=== PATIENT | male | born 1985 | race Two or more races ===

== ENCOUNTER 2019-08-26 16:15 | Emergency (ER) | payer MEDICAID ==
[~2019-08-26] VITALS: Ht 167.6 cm; Wt 63.5 kg
[2019-08-26 16:25] VITALS: BP 135/78
[2019-08-26 16:42] LABS: Basophils # (auto) 0 uL; Basophils % (auto) 0.5 % (0.0-2.0); Eosinophils # (auto) 0 uL; Eosinophils % (auto) 0.5 % (0.0-7.0); Hematocrit 46.6 % (41.0-53.0); Lymphocytes # (auto) 0.5 uL; Lymphocytes % (auto) 6.3 % (10.0-50.0); Mean Corpuscular Hemoglobin 30.1 pg (28.0-32.0); Mean Corpuscular Hgb Conc. 34.3 g/dL (32.0-36.0); Mean Corpuscular Volume 87.8 fL (80.0-100.0); Monocytes # (auto) 0.5 uL; Monocytes % (auto) 6.2 % (0.0-12.0); Neutrophils # (auto) 6.3 uL; Neutrophils % (auto) 86.5 % (37.0-80.0); Nucleated Red Blood Cells % 0.1 %; Platelet Count (auto) 220 10^3/uL (140-450); Red Blood Cells 5.31 10^6/uL (4.5-5.90); Red Cell Distribution Width 13.1 % (11.8-14.3); White Blood Cell 7.3 10^3/uL (4.4-10.8)
[2019-08-26 17:06] LABS: BUN/Creatinine Ratio 10.9; Potassium 3.9 mmol/L (3.5-5.1)
[2019-08-26 17:07] LABS: Albumin 4.1 g/dL (3.4-5.0); Bilirubin, Total 1.4 mg/dL (0.2-1.0); Calcium 8.7 mg/dL (8.5-10.1); Total Protein 7.9 g/dL (6.4-8.2)
== END 2019-08-27 04:51 | disposition left against medical advice (07) ==
LOC: ER 16:15
DX: R53.1 Weakness (principal)
CPT/HCPCS: 36415; 80053; 85025

== ENCOUNTER 2019-10-07 22:04 | Emergency (ER) | payer MEDICAID, OTHER ==
[~2019-10-07] VITALS: Ht 167.6 cm; Wt 63.5 kg
[2019-10-07 22:43] VITALS: BP 120/80
== END 2019-10-07 23:52 | disposition left against medical advice (07) ==
LOC: ER 22:07
DX: M54.2 Cervicalgia (principal); M25.519 Pain in unspecified shoulder; M54.6 Pain in thoracic spine; Z53.21 Procedure and treatment not carried out due to patient leaving prior to being seen by health care provider; V29.9XXA Motorcycle rider (driver) (passenger) injured in unspecified traffic accident, initial encounter; Y93.89 Activity, other specified; Y92.89 Other specified places as the place of occurrence of the external cause; Y99.8 Other external cause status
CPT/HCPCS: 70450; 72125; 72128

== ENCOUNTER 2021-02-09 10:28 | Emergency (ER) | payer MEDICAID, OTHER ==
[~2021-02-09] VITALS: Ht 167.6 cm; Wt 69.4 kg
[2021-02-09 11:03] LABS: Urine Bacteria NONE SEEN /hpf (None Seen); Urine Blood Negative /uL (Negative); Urine Mucus FEW (None Seen); Urine Specific Gravity 1.026 (1.001-1.035); Urine WBC 14 /hpf (0 - 3)
[2021-02-09 11:16] VITALS: BP 116/85
== END 2021-02-09 11:50 | disposition home or self-care (01) ==
LOC: ER 10:28
DX: S76.911A Strain of unspecified muscles, fascia and tendons at thigh level, right thigh, initial encounter (principal); L72.0 Epidermal cyst; X58.XXXA Exposure to other specified factors, initial encounter; Y93.89 Activity, other specified; Y92.89 Other specified places as the place of occurrence of the external cause; Y99.8 Other external cause status
CPT/HCPCS: 76870; 81001

== ENCOUNTER 2021-12-12 20:57 | Emergency (ER) | payer MEDICAID ==
[~2021-12-12] VITALS: Ht 170.2 cm; Wt 67.6 kg
[2021-12-12 21:00] VITALS: BP 144/87
[2021-12-12 21:36] LABS: Urine Bacteria NONE SEEN /hpf (None Seen); Urine Blood Negative /uL (Negative); Urine Mucus FEW (None Seen); Urine Specific Gravity 1.028 (1.001-1.035); Urine WBC 6 /hpf (0 - 3)
== END 2021-12-13 01:50 | disposition left against medical advice (07) ==
LOC: ER 20:59
DX: N50.819 Testicular pain, unspecified (principal); Z53.21 Procedure and treatment not carried out due to patient leaving prior to being seen by health care provider
CPT/HCPCS: 81001

== ENCOUNTER 2022-09-15 01:44 | Emergency (ER) | payer MEDICAID ==
[~2022-09-15] VITALS: Ht 167.6 cm; Wt 68.3 kg
[2022-09-15 02:28] VITALS: BP 142/99
== END 2022-09-16 05:28 | disposition left against medical advice (07) ==
LOC: ER 01:44
DX: R06.02 Shortness of breath (principal); Z53.21 Procedure and treatment not carried out due to patient leaving prior to being seen by health care provider
CPT/HCPCS: 71046

== ENCOUNTER 2022-09-15 15:22 | Emergency (ER) | payer MEDICAID ==
[~2022-09-15] VITALS: Ht 167.6 cm; Wt 65.5 kg
[2022-09-15 15:56] VITALS: BP 144/98
== END 2022-09-15 19:18 | disposition home or self-care (01) ==
LOC: ER 15:22
DX: B34.9 Viral infection, unspecified (principal); J02.9 Acute pharyngitis, unspecified; Z91.010 Allergy to peanuts

== ENCOUNTER 2023-04-27 00:41 | Emergency (ER) | payer MEDICAID ==
[~2023-04-27] VITALS: Ht 170.2 cm; Wt 68.0 kg
[2023-04-27 00:41] VITALS: BP 127/89
[2023-04-27 01:50] LABS: Urine Bacteria FEW /hpf (None Seen); Urine Blood 1+ /uL (Negative); Urine Mucus FEW (None Seen); Urine Specific Gravity 1.031 (1.001-1.035); Urine WBC 107 /hpf (0 - 3)
[2023-04-27 01:56] LABS: Basophils # (auto) 0 10 ^3/uL (0-0.2); Basophils % (auto) 0.4 % (0.0-2.0); Eosinophils # (auto) 0.2 10 ^3/uL (0-0.8); Eosinophils % (auto) 2.7 % (0.0-7.0); Hematocrit 43.7 % (41.0-53.0); Hemoglobin 14.7 g/dL (13.5-17.5); Lymphocytes # (auto) 1.1 10 ^3/uL (0.4-5.4); Lymphocytes % (auto) 14.7 % (10.0-50.0); Mean Corpuscular Hemoglobin 29.2 pg (28.0-32.0); Mean Corpuscular Hgb Conc. 33.7 g/dL (32.0-36.0); Mean Corpuscular Volume 86.8 fL (80.0-100.0); Monocytes # (auto) 0.6 10 ^3/uL (0-1.3); Monocytes % (auto) 7.5 % (0.0-12.0); Neutrophils # (auto) 5.6 10 ^3/uL (1.6-8.6); Neutrophils % (auto) 74.7 % (37.0-80.0); Nucleated Red Blood Cells % 0.1 %; Red Blood Cells 5.03 10^6/uL (4.5-5.90); Red Cell Distribution Width 12.8 % (11.8-14.3); White Blood Cell 7.5 10^3/uL (4.4-10.8)
[2023-04-27 02:12] LABS: Albumin 3.7 g/dL (3.4-5.0); Calcium 8.5 mg/dL (8.5-10.1); Potassium 3.5 mmol/L (3.5-5.1)
[2023-04-27 02:15] LABS: BUN/Creatinine Ratio 11.3 (10.0-20.0); Bilirubin, Total 0.9 mg/dL (0.2-1.0); Total Protein 7.5 g/dL (6.4-8.2)
== END 2023-04-27 05:59 | disposition left against medical advice (07) ==
LOC: ER 00:41
DX: R10.11 Right upper quadrant pain (principal); Z53.21 Procedure and treatment not carried out due to patient leaving prior to being seen by health care provider
CPT/HCPCS: 36415; 80053; 81001; 83690; 84484; 85025

== ENCOUNTER 2023-06-16 01:56 | Emergency (ER) | payer MEDICAID ==
[~2023-06-16] VITALS: Ht 167.6 cm; Wt 63.7 kg
[2023-06-16 02:16] VITALS: BP 136/97; PULSE 79; RESP 16; TEMP 97.9
[2023-06-16] MEDS ORDERED: FLUORESCEIN SOD OPTH TEST STRIP ONE (02:50)
[2023-06-16] MEDS ORDERED: HYDROcodone-ACET 5/325MG TAB PO ONE (03:45)
[2023-06-16] MEDS ORDERED: ERYTHROMY OPTH OINT 5mg/gm 1gm or 3.5gm tube OP ONE (03:45)
[2023-06-16] MEDS ORDERED: TETANUS-DIPTH-ACEL PERTUSSIS 0.5ML SYR Tdap IM ONE (03:45)
[2023-06-16] MEDS ORDERED: GENT0.3S10 EACHEYE (03:48)
[2023-06-16 03:57] VITALS: O2SAT 97
== END 2023-06-16 03:31 | disposition left against medical advice (07) ==
LOC: ER 01:58
DX: T15.01XA Foreign body in cornea, right eye, initial encounter (principal); Z91.010 Allergy to peanuts; W22.8XXA Striking against or struck by other objects, initial encounter; Y93.89 Activity, other specified; Y92.89 Other specified places as the place of occurrence of the external cause; Y99.8 Other external cause status

== ENCOUNTER 2025-09-28 15:35 | Emergency (ER) | payer MEDICAID ==
[~2025-09-28] VITALS: Ht 170.2 cm; Wt 68.7 kg
[~2025-09-28 15:35] MED LIST: GENT0.3S10 EACHEYE
[2025-09-28 15:37] VITALS: BP 147/99; PULSE 98; RESP 15; TEMP 98.2; O2SAT 97
--- NOTE | 2025-09-28 16:55 | DVH ---
CLINICAL INDICATION: INJURY TECHNIQUE: 3 radiographic views of the right shoulder were obtained. Comparison: None FINDINGS/IMPRESSION: There is no evidence of acute fracture or dislocation. The visualized joint space is well maintained. The alignment is anatomical. There is no radiopaque foreign body.
[2025-09-28] MEDS ORDERED: IBUP-1456 PO (17:08)
--- NOTE | 2025-09-28 17:09 | ED.PDOC ---
Musculoskeletal HPI Comments A 39 YEAR OLD MALE PRESENTS TO THE ED WITH COMPLAINT OF RIGHT SHOULDER PAIN. PATIENT STATES HE WAS LIFTING A BUCKET OF PAINT YESTERDAY NIGHT AND HE FELT PAIN IN HIS RIGHT SHOULDER SHORTLY AFTER. PATIENT REPORTS HE IS NOW EXPERIENCING RIGHT SHOULDER PAIN THAT IS WORSE WITH MOVEMENT. PATIENT DENIES FEVER, CHILLS, SHORTNESS OF BREATH, CHEST PAIN, ABDOMINAL PAIN, NAUSEA, VOMITING, HEADACHE, OR OTHER COMPLAINTS. NO OTHER SYMPTOMS OR MODIFYING FACTORS AT THIS TIME. PATIENT IS ALERT, ORIENTED X 4, AND HAS STEADY GAIT. Chief Complaint: Upper Extremity Time Seen by MD: 16:06 Primary Care Provider: JILL Reviewed Notes: Nurses Notes, Medications, Allergies Allergies: Coded Allergies: Peanut-containing Drug Products (Verified Allergy, Unknown, 02/24/21) Uncoded Allergies: NKA (Allergy, 12/11/09) Home Meds Active Scripts Ibuprofen (Ibuprofen) 800 Mg Tab, 1 TAB PO TID, #30 TAB Prov:TEODORA PEÑA 09/28/25 Gentamicin Sulfate (Gentamicin Sulfate) 0.3 % Maricruz, 2 DROP EACHEYE QID, #5 ML right eye Prov:MARIANA BARRAZA INSPECTOR CRYSTAL 06/16/23 Information Source: Patient Mode of Arrival: Ambulatory Location: Right Extremity Location: Shoulder Timing: Days Prehospital treatment: None Severity: Moderate Able to Move Extremity: Yes Bear Weight: Fully Pain: Moderate Mechanism: Twisting Circumstances: Accident Onset of Symptoms: After Exercise Symptoms: Pain DVT Risk Factors: NONE Last Tetanus: Unknown Associated signs and symptoms: Shoulder pain Past Medical History PAST MEDICAL HISTORY: Denies Surgical History: Denies all surgeries Family History Family History: No family hx of Cancer, No family hx of DM, No family hx of Heart rae Social History Smoker: Non-Smoker Alcohol: Heavy Drugs: Denies Drug Use Lives In: Home Constitutional: denies: chills, diaphoresis, fatigue, fever, malaise, sweats, weakness, others EENTM: denies: blurred vision, double vision, ear bleeding, ear discharge, ear drainage, ear pain, ear ringing, eye pain, eye redness, hearing loss, mouth pain, mouth swelling, nasal discharge, nose bleeding, nose congestion, nose pain, photophobia, tearing, throat pain, throat swelling, voice changes, others Respiratory: denies: cough, hemoptysis, orthopnea, SOB at rest, shortness of breath, SOB with excertion, stridor, wheezing, others Cardiovascular: denies: chest pain, dizzy spells, diaphoresis, Dyspnea on exertion, edema, irregular heart beat, left arm pain, lightheadedness, palpitations, PND, syncope, others Gastrointestinal: denies: abdomen distended, abdominal pain, blood streaked bowels, constipated, diarrhea, dysphagia, difficulty swallowing, hematemesis, melena, nausea, poor appetite, poor fluid intake, rectal bleeding, rectal pain, vomiting, others Genitourinary: denies: burning, dysuria, flank pain, frequency, hematuria, incontinence, penile discharge, penile sore, pain, testicle pain, testicle swelling, urgency, others Neurological: denies: dizziness, fainting, headache, left sided numbness, left sided weakness, numbness, paresthesia, pre-existing deficit, right sided numbness, right sided weakness, seizure, speech problems, tingling, tremors, weakness, others Musculoskeletal: reports: joint pain, muscle pain, others (RIGHT SHOULDER PAIN); denies: back pain, gout, joint swelling, muscle stiffness, neck pain Integumetry: denies: bruises, change in color, change in hair/nails, dryness, laceration, lesions, lumps, rash, wounds, others Allergic/Immunocompromised: denies: Difficulty Healing, Frequent Infections, Hives, Itching, others Hematologic/Lymphatic: denies: anemia, blood clots, easy bleeding, easy bruising, swollen glands, others Endocrine: denies: excessive hunger, excessive sweating, excessive thirst, excessive urination, flushing, intolerance to cold, intolerance to heat, unexplained weight gain, unexplained weight loss, others Psychiatric: denies: anxiety, bipolar disorder, depression, hopeless, panic disorder, schizophrenia, sleepless, suicidal, others All Other Systems: Reviewed and Negative Physical Exam General Appearance: No Apparent Distress, Normal HEENT: Normal ENT Inspection, PERRL/EOMI, Pharynx Normal, TMs Normal Neck: Full Range of Motion, Non-Tender, Normal, Normal Inspection Respiratory: Chest Non-Tender, Lungs Clear, No Accessory Muscle Use, No Respiratory Distress, Normal Breath Sounds Cardiovascular: No Edema, No JVD, No Murmur, No Gallop, Normal Peripheral Pulses, Regular Rate/Rhythm Breast Exam: Deferred Gastrointestinal: No Organomegaly, Non Tender, No Pulsatile Mass, Normal Bowel Sounds, Soft Genitalia: Deferred Pelvic: Deferred Rectal: Deferred Extremities: Decreased range of motion (SLIGHTLY. ), No calf tenderness, Normal capillary refill, No pedal edema, Tender (AND MUSCLE SPASM ON RIGHT SHOULDER, NO BONY TENDERNESS, SWELLING AMND DEFORMITY. 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 Was a procedure done?: No Differential Diagnosis EXT Differential Diagnosis: Fracture, Sprain, Dislocation, Contusion, Strain X-Ray, Labs, Meds, VS Vital Signs Date Time Temp Pulse Resp B/P (MAP) Pulse Ox O2 Delivery O2 Flow Rate FiO2 09/28/25 15:37 98.2 98 15 147/99 97 98.2 CLINICAL INDICATION: INJURY TECHNIQUE: 3 radiographic views of the right shoulder were obtained. Comparison: None FINDINGS/IMPRESSION: There is no evidence of acute fracture or dislocation. The visualized joint space is well maintained. The alignment is anatomical. There is no radiopaque foreign body. ATED BY: CHASTITY FULLER DO DICTATED DATE/TIME: 09/28/251652 SIGNED BY: CHASTITY FULLER DO SIGNED DATE/TIME: 09/28/251652 CC: X-Ray, Labs, Meds, VS Comment EXTERNAL MEDICAL RECORDS REVIEWED: [NONE] INDEPENDENT HISTORIANS: [NONE] SOCIAL DETERMINANTS OF HEALTH: [NONE] LABS ORDERED: NONE REVIEWED AND INTERPRETED RESULTS: NONE IMAGING ORDERED: XR SHOULDER RT TREATMENTS ORDERED: MOTRIN 800MG PO PROCEDURES PERFORMED: NONE CRITICAL CARE TIME: NONE I HAVE DISCUSSED THE PATIENT WITH THE ATTENDING PHYSICIAN DR. ORTIZ AND HE AGR EES WITH THE PATIENT'S PLAN OF CARE AND DISPOSITION. BASED ON HISTORY OF PRESENT ILLNESS, AND PHYSICAL EXAM, PATIENT WILL BE DI SCHARGED HOME. DISCUSSED PLAN FOR DISCHARGE HOME WITH RX [MOTRIN 800MG AND ROBAXIN]. MEDICATION WARNINGS GIVEN. SHARED DECISION MAKING: PATIENT INSTRUCTED TO FOLLOW UP WITH PRIMARY CARE PROVIDER IN 1-2 DAYS FOR RE-EVALUATION OF SYMPTOMS. PATIENT VERBALIZES UNDERSTANDING TO RETURN TO ED FOR NEW OR WORSENING SYMPTOMS OR IF FOLLOW UP WITH PCP CANNOT BE OBTAINED. PATIENT FEELS COMFORTABLE GOING HOME AT THIS TIME. ALL QUESTIONS ADDRESSED AT TIME OF DISCHARGE. Images Reviewed?: Images reviewed and evaluated by me Time of 1ST Reevaluation: 17:23 Reevaluation 1ST: Improved Patient Education/Counseling: Diagnosis, Treatment, Need For Follow Up Family Education/Counseling: Diagnosis, Treatment, Need For Follow Up Medical Screening: No EMC Exist At This Time Departure 1 Departure Time of Disposition: 17:23 Impression: Primary Impression: Muscle strain of right shoulder Qualified Codes: S46.911A - Strain of unspecified muscle, fascia and tendon at shoulder and upper arm level, right arm, initial encounter Disposition: HOME / SELF CARE / HOMELESS Condition: Stable Additional Instructions: FOLLOW-UP WITH PCP IN 1 TO 2 DAYS. TAKE MEDICATIONS PRESCRIBED. RETURN TO ED FOR ANY NEW OR WORSENING SYMPTOMS. e-Prescriptions Ibuprofen (Ibuprofen) 800 Mg Tab 1 TAB PO TID, #30 TAB Prov: TEODORA PEÑA 09/28/25 Discharged With: Self Critical Care Note Critical Care Time?: No Stability Stability form required: No I personally scribed for TEODORA PEÑA ([email or web address]) on 09/28/25 at 17:09. Electronically submitted by Eamon Nguyen ([email or web address]). TEODORA PEÑA Sep 28, 2025 17:09
[2025-09-28] MEDS: IBUPROFEN 800 MG TAB PO ONE (17:18)
== END 2025-09-28 17:20 | disposition home or self-care (01) ==
LOC: ER 15:35
DX: S46.911A Strain of unspecified muscle, fascia and tendon at shoulder and upper arm level, right arm, initial encounter (principal); Z91.010 Allergy to peanuts; Z79.1 Long term (current) use of non-steroidal anti-inflammatories (NSAID); Z79.899 Other long term (current) drug therapy; X50.0XXA Overexertion from strenuous movement or load, initial encounter; Y93.89 Activity, other specified; Y92.89 Other specified places as the place of occurrence of the external cause; Y99.8 Other external cause status
CPT/HCPCS: 73030

== ENCOUNTER 2025-10-04 18:40 | Emergency (ER) | payer MEDICAID ==
[~2025-10-04] VITALS: Ht 170.2 cm; Wt 69.8 kg
[~2025-10-04 18:40] MED LIST changes: +IBUP-1456 PO
[2025-10-04 18:42] VITALS: BP 173/104; PULSE 82; RESP 16; TEMP 98; O2SAT 99
--- NOTE | 2025-10-04 19:08 | ED.PDOC ---
History of Present Illness HPI Comments 39M presents to the ER w/ the c/c of shoulder pain. Pt reports on having had inured his right shoulder after lifting a heavy object on 09/28/25, which prompted him to go to the ER but left AMA before being prescribed medications. Pt states on having neck pain/shoulder pain as well as a hard time moving his n yeimi for the past 5 days. Denies any symptoms at this time. Patient denies any CP, SOB, dizziness, numbness, weakness, tingling, fever, chills, or recent fall. Chief Complaint: Upper Extremity Time Seen by MD: 19:00 Primary Care Provider: JILL Michele Notes: Nurses Notes, Medications, Allergies Allergies: Coded Allergies: Peanut-containing Drug Products (Verified Allergy, Unknown, 02/24/21) Uncoded Allergies: NKA (Allergy, 12/11/09) Home Meds Active Scripts Ibuprofen (Ibuprofen) 800 Mg Tab, 1 TAB PO TID, #30 TAB Prov:TEODORA PEÑA 09/28/25 Gentamicin Sulfate (Gentamicin Sulfate) 0.3 % Maricruz, 2 DROP EACHEYE QID, #5 ML right eye Prov:MARIANA BARRAZA ELECTRICAL PROSPECTING ENGINEER 06/16/23 Information Source: Patient Mode of Arrival: Ambulatory Severity: Moderate Timing: Days Duration: Since onset, Days Prehospital treatment: None Past Medical History PAST MEDICAL HISTORY: Denies Surgical History: Denies all surgeries Family History Family History: Reviewed,noncontributory to illness, Unknown Social History Smoker: Non-Smoker Alcohol: Heavy Drugs: Denies Drug Use Lives In: Home Constitutional: denies: chills, diaphoresis, fatigue, fever, malaise, sweats, weakness, others EENTM: denies: blurred vision, double vision, ear bleeding, ear discharge, ear drainage, ear pain, ear ringing, eye pain, eye redness, hearing loss, mouth pain, mouth swelling, nasal discharge, nose bleeding, nose congestion, nose pain, photophobia, tearing, throat pain, throat swelling, voice changes, others Respiratory: denies: cough, hemoptysis, orthopnea, SOB at rest, shortness of breath, SOB with excertion, stridor, wheezing, others Cardiovascular: denies: chest pain, dizzy spells, diaphoresis, Dyspnea on exertion, edema, irregular heart beat, left arm pain, lightheadedness, palpitations, PND, syncope, others Gastrointestinal: denies: abdomen distended, abdominal pain, blood streaked bowels, constipated, diarrhea, dysphagia, difficulty swallowing, hematemesis, melena, nausea, poor appetite, poor fluid intake, rectal bleeding, rectal pain, vomiting, others Genitourinary: denies: burning, dysuria, flank pain, frequency, hematuria, incontinence, penile discharge, penile sore, pain, testicle pain, testicle swelling, urgency, others Neurological: denies: dizziness, fainting, headache, left sided numbness, left sided weakness, numbness, paresthesia, pre-existing deficit, right sided numbness, right sided weakness, seizure, speech problems, tingling, tremors, weakness, others Musculoskeletal: reports: neck pain (right shoulder pain); denies: back pain, gout, joint pain, joint swelling, muscle pain, muscle stiffness, others Integumetry: denies: bruises, change in color, change in hair/nails, dryness, laceration, lesions, lumps, rash, wounds, others Allergic/Immunocompromised: denies: Difficulty Healing, Frequent Infections, Hives, Itching, others Hematologic/Lymphatic: denies: anemia, blood clots, easy bleeding, easy bruising, swollen glands, others Endocrine: denies: excessive hunger, excessive sweating, excessive thirst, excessive urination, flushing, intolerance to cold, intolerance to heat, unexplained weight gain, unexplained weight loss, others Psychiatric: denies: anxiety, bipolar disorder, depression, hopeless, panic disorder, schizophrenia, sleepless, suicidal, others All Other Systems: Reviewed and Negative Physical Exam Exam Comments Full ROM to the right shoulder, Tenderness to the right trapezius muscle General Appearance: No Apparent Distress, Normal HEENT: Normal ENT Inspection, Pharynx Normal, TMs Normal Neck: Full Range of Motion, Non-Tender, Normal, Normal Inspection Respiratory: Chest Non-Tender, Lungs Clear, No Accessory Muscle Use, No Respiratory Distress, Normal Breath Sounds Cardiovascular: No Edema, No JVD, No Murmur, No Gallop, Normal Peripheral Pulses, Regular Rate/Rhythm Breast Exam: Deferred Gastrointestinal: No Organomegaly, Non Tender, No Pulsatile Mass, Normal Bowel Sounds, Soft Genitalia: Deferred Pelvic: Deferred Rectal: Deferred Extremities: No calf tenderness, Normal capillary refill, Normal inspection, Normal range of motion, Non-tender, No pedal edema Musculoskeletal : Apperance: Normal Neurologic: Alert, 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 Was a procedure done?: No Differential Dx Considerations may include: Muscle strain, shoulder dislocation, fracture, X-Ray, Labs, Meds, VS Vital Signs Date Time Temp Pulse Resp B/P (MAP) Pulse Ox O2 Delivery O2 Flow Rate FiO2 10/04/25 18:42 98.0 82 16 173/104 99 98.0 X-Ray, Labs, Meds, VS Comment Imaging was reviewed by this provider, there is no obvious pathological or acute disease process. Pending radiology review Labs were reviewed by this provider, no abnormalities Vital signs reviewed by this provider, clinically stable Time of 1ST Reevaluation: 19:30 Reevaluation 1ST: Unchanged Patient Education/Counseling: Diagnosis, Treatment, Prognosis, Need For Follow Up (Follow up with PCP next available appointment. Return to emergency department if symptoms worsen.) Family Education/Counseling: No Family Present SEPSIS Sepsis Screen Date sepsis recognized/suspect: Oct 04, 2025 Time Sepsis recognized/suspect: 1842 Recent Procedure: No On Antibiotic Therapy: No Respiratory Rate >20: No Heart Rate >90: No Temp<36 C (96.8 F) or >38.3 C: No SBP <90 or MAP <65 mmHG: No New Acute Mental Status Change: No Is the patient on CPAP, BIPAP,: No Vital Signs Date Time Temp Pulse Resp B/P (MAP) Pulse Ox O2 Delivery O2 Flow Rate FiO2 10/04/25 18:42 98.0 82 16 173/104 99 98.0 Departure 1 Departure Time of Disposition: 19:26 Impression: Primary Impression: Trapezius muscle strain Qualified Codes: S46.811A - Strain of other muscles, fascia and tendons at shoulder and upper arm level, right arm, initial encounter Additional Impression: Torticollis Disposition: HOME / SELF CARE / HOMELESS Condition: Fair e-Prescriptions Cyclobenzaprine Hcl (Cyclobenzaprine Hcl) 5 Mg Tab 1 TAB PO TID PRN, #30 TAB Prov: LOLI KIDD 10/04/25 Discharged With: Self Critical Care Note Critical Care Time?: No Stability Stability form required: No I personally scribed for LOLI KIDD ([email or web address]) on 10/04/25 at 19:08. Electronically submitted by Jaime Dougherty ([email or web address]). LOLI KIDD Oct 04, 2025 19:08
[2025-10-04] MEDS ORDERED: CYCL-837 PO (19:27)
[2025-10-04] MEDS: methylPREDNISolone SOD SUCC 125 MG/2 ML VL IM ONE (22:39)
[2025-10-04] MEDS: KETOROLAC TROMETH 30 MG/ML 1ML VIAL IM ONE (22:39)
== END 2025-10-04 22:38 | disposition home or self-care (01) ==
LOC: ER 18:40
DX: S29.012A Strain of muscle and tendon of back wall of thorax, initial encounter (principal); M43.6 Torticollis; F10.90 Alcohol use, unspecified, uncomplicated; Z79.899 Other long term (current) drug therapy; Z91.010 Allergy to peanuts; Z79.1 Long term (current) use of non-steroidal anti-inflammatories (NSAID); X50.0XXA Overexertion from strenuous movement or load, initial encounter; Y93.89 Activity, other specified; Y92.89 Other specified places as the place of occurrence of the external cause; Y99.8 Other external cause status
CPT/HCPCS: J1885

== ENCOUNTER 2025-10-06 02:29 | Emergency (ER) | payer MEDICAID ==
[~2025-10-06] VITALS: Ht 167.6 cm; Wt 68.1 kg
[~2025-10-06 02:29] MED LIST changes: +CYCL-837 PO
[2025-10-06 02:32] VITALS: BP 157/119; PULSE 90; RESP 18; TEMP 97.7; O2SAT 98
[2025-10-06] MEDS: KETOROLAC TROMETH 60MG/2ML VIAL IM ONE (03:35)
--- NOTE | 2025-10-06 03:41 | ED.PDOC ---
Back pain HPI HPI Comments PT CAME TO THE ER WITH CC OF RIGHT SHOULDER PAIN, PT STATES THAT HE WAS CARRYING A CEMENT BAG AND HYPEREXTENDED HIS RIGHT ARM, PT WAS SEEN YESTERDAY BUT HAD TO LEAVE. PT REPORTS TINGLING AND MUSCLE SPASMS. 08/11 PAIN PT IS A&OX4 RR EVEN AND REGULAR NO DISTRESS NOTED, PT DENIES ALL OTHER SYMPTOMS AT THIS TIME Chief Complaint: Upper Extremity Time Seen by MD: 02:33 Primary Care Provider: JILL Michele Notes: Nurses Notes, Medications, Allergies Allergies: Coded Allergies: Peanut-containing Drug Products (Verified Allergy, Unknown, 02/24/21) Uncoded Allergies: NKA (Allergy, 12/11/09) Home Meds Active Scripts Cyclobenzaprine Hcl (Cyclobenzaprine Hcl) 5 Mg Tab, 1 TAB PO TID PRN, #30 TAB Prov:LOLI KIDD MAINSPRING STRIP GAUGER 10/04/25 Ibuprofen (Ibuprofen) 800 Mg Tab, 1 TAB PO TID, #30 TAB Prov:TEODORA PEÑA 09/28/25 Gentamicin Sulfate (Gentamicin Sulfate) 0.3 % Maricruz, 2 DROP EACHEYE QID, #5 ML right eye Prov:MARIANA BARRAZA BODY TRIMMER UPHOLSTERER 06/16/23 Information Source: Patient Mode of Arrival: Ambulatory Past Medical History PAST MEDICAL HISTORY: Denies Surgical History: Denies all surgeries Family History Family History: Reviewed,noncontributory to illness, Unknown Social History Smoker: Non-Smoker Alcohol: Heavy Drugs: Denies Drug Use Lives In: Home All Other Systems: Reviewed and Negative (SEE HPI) Physical Exam General Appearance: No Apparent Distress, Normal HEENT: Pharynx Normal Neck: Full Range of Motion, Non-Tender Respiratory: Lungs Clear, No Respiratory Distress, Normal Breath Sounds Cardiovascular: No Murmur, Normal Peripheral Pulses, Regular Rate/Rhythm Breast Exam: Deferred Gastrointestinal: Non Tender, Soft Genitalia: Deferred Pelvic: Deferred Rectal: Deferred Extremities: Normal capillary refill, Normal range of motion, Non-tender Musculoskeletal : Location: Right Extremity Location: Shoulder (MODERATE TENDERNESS PALPATED OVER ANTERIOR SHOULDER STRENGTH SENSORY MOTION INTACT) Apperance: Normal Neurologic: Alert, No Motor Deficits, Normal Affect, Normal Mood, No Sensory Deficits Cerebellar Function: Normal Reflexes: NOT DONE Skin: Dry, Normal Color, Warm Lymphatic: No Adenopathy Was a procedure done? Was a procedure done?: No Back Pain Differential Dx Differential Diagnosis: Fracture, Musculoskeletal Pain X-Ray, Labs, Meds, VS Vital Signs Date Time Temp Pulse Resp B/P (MAP) Pulse Ox O2 Delivery O2 Flow Rate FiO2 10/06/25 02:32 97.7 90 18 157/119 98 97.7 Current Medications Medications (Trade) Dose Ordered Sig/Demario Route Start Time Stop Time Status Last Admin Ketorolac Tromethamine (Toradol Injection) 60 mg ONCE ONCE IM 10/06/25 02:45 10/06/25 02:46 DC 10/06/25 03:35 Dexamethasone Sodium Phosphate (Decadron Injection) 10 mg ONCE ONCE IM 10/06/25 02:45 10/06/25 02:46 DC 10/06/25 03:35 X-Ray, Labs, Meds, VS Comment RIGHT SHOULDER FINDINGS/IMPRESSION: There is no evidence of acute fracture or dislocation. The visualized joint space is well maintained. The alignment is anatomical. There is no radiopaque foreign body. Patient given Toradol 60 mg IM and Decadron 10 mg IM . Reports improvement in pain and function requesting discharge at this time. muscle relaxer SENT TO PHARMACY ON 10/04/2025 advised take medication as prescribed side effects discussed. Advised to alternate between ice and heat. Advised to rest. Advised to follow up with PCP in 2-3 days as necessary consider further treatments such as MRI, physical therapy, or pain managment referral if symptoms persist. Advised on ER return precautions for increasing pain, numbness, weakness, loss of bowel bladder control or saddle anesthesia. Patient indicates understanding agrees with discharge plan of care. Images Reviewed?: Images reviewed and evaluated by me Time of 1ST Reevaluation: 02:33 Reevaluation 1ST: Unchanged Time of 2ND Reevaluation: 03:35 Reevaluation 2ND: Improved Patient Education/Counseling: Diagnosis, Treatment, Need For Follow Up Family Education/Counseling: No Family Present SEPSIS Sepsis Screen Date sepsis recognized/suspect: Oct 06, 2025 Time Sepsis recognized/suspect: 0236 Recent Procedure: No On Antibiotic Therapy: No Respiratory Rate >20: No Heart Rate >90: No Temp<36 C (96.8 F) or >38.3 C: No SBP <90 or MAP <65 mmHG: No New Acute Mental Status Change: No Is the patient on CPAP, BIPAP,: No Vital Signs Date Time Temp Pulse Resp B/P (MAP) Pulse Ox O2 Delivery O2 Flow Rate FiO2 10/06/25 02:32 97.7 90 18 157/119 98 97.7 Medications Medications Dose Ordered Sig/Demario Route Start Time Stop Time Status Last Admin Dose Admin Dexamethasone Sodium Phosphate 10 mg ONCE ONCE IM 10/06/25 02:45 10/06/25 02:46 DC 10/06/25 03:35 Ketorolac Tromethamine 60 mg ONCE ONCE IM 10/06/25 02:45 10/06/25 02:46 DC 10/06/25 03:35 Departure 1 Departure Time of Disposition: 03:40 Impression: Primary Impression: Muscle strain of right shoulder Qualified Codes: S46.911A - Strain of unspecified muscle, fascia and tendon at shoulder and upper arm level, right arm, initial encounter Disposition: 01 HOME / SELF CARE / HOMELESS Condition: Stable Discharged With: Self Critical Care Note Critical Care Time?: No Stability Stability form required: IZAIAH Elena Oct 06, 2025 03:41
== END 2025-10-06 04:09 | disposition home or self-care (01) ==
LOC: ER 02:29
DX: S46.911A Strain of unspecified muscle, fascia and tendon at shoulder and upper arm level, right arm, initial encounter (principal); X58.XXXA Exposure to other specified factors, initial encounter; Y93.89 Activity, other specified; Y92.89 Other specified places as the place of occurrence of the external cause; Y99.8 Other external cause status
CPT/HCPCS: 96372; 99284; J1100; J1885

== ENCOUNTER 2025-10-09 19:20 | Emergency (ER) | payer MEDICAID ==
[~2025-10-09] VITALS: Ht 167.6 cm; Wt 69.1 kg
[2025-10-09 19:24] VITALS: BP 164/109; PULSE 101; RESP 16; TEMP 98; O2SAT 98
== END 2025-10-09 21:28 | disposition left against medical advice (07) ==
LOC: ER 19:20
DX: M25.511 Pain in right shoulder (principal); Z53.21 Procedure and treatment not carried out due to patient leaving prior to being seen by health care provider